=== PATIENT | male | born 1970 | race Caucasian/White ===

== ENCOUNTER 2019-12-20 04:28 | Emergency (ER) | payer BC, OTHER ==
[~2019-12-20] VITALS: Ht 180.3 cm; Wt 106.8 kg
--- NOTE | 2019-12-20 04:45 | ED Cough/URI ---
General Stated Complaint: FLU LIKE SYMPTOMS History of Present Illness Date Seen by Provider: Dec 20, 2019 Time Seen by Provider: 04:30 Initial Comments This patient is a 49-year-old male who presents to the emergency department with no complaints. Patient had a littlesinus congestion earlier but does have a history of seasonal allergies. 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 Patient was brought in by EMS adamant by that thought he needed to be checked for coronavirus however the patient has no symptoms. Patient has no shortness of breath has no fever has no nasal congestion has no sore throat. Patient states he doesn't even feel like even needs to be in the emergency department. Patient is in the emergency department alone at this time family members are in the waiting room. I did discuss only with patient about certain criterion symptoms for coronavirus testing. Patient has had no recent travel has had no exposure to any person who has had recent travel outside of the country patient has not had any exposure to any of that he knows of any sick contacts. Patient denies fever denies cough denies sore throat denies any Symptoms consistent with an upper respiratory infection. I did discuss at length with patient about different options. Patient be offered phone number for coronavirus hotline. At this time do not feel the patient needs any further testing. Patient does not even have flulike symptoms. Patient states understanding patient will be discharged home. Timing/Duration: yesterday Severity/Quality: no cough Prior Episodes/Possible Cause: no prior episodes Associated Symptoms: denies symptoms Allergies and Home Medications Patient Home Medication List Home Medication List Reviewed: Yes Review of Systems Review of Systems Constitutional: no symptoms reported EENTM: no symptoms reported Respiratory: no symptoms reported Cardiovascular: no symptoms reported Gastrointestinal: no symptoms reported Genitourinary: no symptoms reported Musculoskeletal: no symptoms reported Skin: no symptoms reported Psychiatric/Neurological: No Symptoms Reported Physical Exam Capillary Refill : Height: '" Weight: lbs. oz. kg; BMI Method: General Appearance: WD/WN, no apparent distress HEENT: PERRL/EOMI, normal ENT inspection, TMs normal, pharynx normal Neck: non-tender, full range of motion, supple, normal inspection Respiratory: chest non-tender, lungs clear, normal breath sounds, no respiratory distress, no accessory muscle use Cardiovascular: normal peripheral pulses, regular rate, rhythm, no edema, no gallop, no JVD, no murmur Gastrointestinal: normal bowel sounds, non tender, soft, no organomegaly, no pulsatile mass Extremities: normal range of motion, non-tender, normal inspection, no pedal edema, no calf tenderness, normal capillary refill Skin: normal color, warm/dry Lymphatic: no adenopathy Progress/Results/Core Measures Suspected Sepsis SIRS Temperature: Pulse: Respiratory Rate: Blood Pressure / Mean: Results/Orders Vital Signs/I&O Capillary Refill : Progress Note : Time: 04:42 Progress Note Negative evaluation for any acute findings. Patient has no upper respiratory infection type symptoms. Has no fever has no nasal congestion or sore throat. Patient states he does have a history of seasonal allergies but he states at this time he feels pretty good considering how he normally feels throughout the day. States he feels is normal as he always does. States he only complains of the hospital because his is adamant that he come to the hospital she called an ambulance to bring him to the hospital. This patient's healthy and has no symptoms specific complaints. Patient family be provided coronavirus [employer] phone number. For any further evaluation to follow up with her primary care physician or the local health department. If they still have concerns they should self quarantine for at least 14 days. Patient be discharged per his request. Departure Impression Primary Impression: Encounter for medical screening examination Additional Impression: Seasonal allergies Disposition: 01 HOME, SELF-CARE Condition: Stable Departure-Patient Inst. Decision time for Depature: 04:44 Patient Instructions: Seasonal Allergies in Adults Add. Discharge Instructions: Patient family be provided coronavirus [employer] phone number. For any further evaluation to follow up with her primary care physician or the local health department. If they still have concerns they should self quarantine for at least 14 days ELHAM BELTRAN MD Dec 20, 2019 04:45
[2019-12-20 04:54] VITALS: BP 98/64
== END 2019-12-20 04:54 | disposition home or self-care (01) ==
LOC: ER FS 04:40
DX: J30.2 Other seasonal allergic rhinitis (principal)
CPT/HCPCS: 99283